=== PATIENT | female | born 1985 | race Caucasian/White ===

== ENCOUNTER → 2018-07-23 | Outpatient (CLI) | payer OTHER ==
[~2018-07-23] MED LIST: CHOL2000 PO; FERR-46 PO; MULT-658 PO
[2018-07-23 13:28] LABS: BASOPHILS # (AUTO) 0.03 x10^3/uL (0-0.1); BASOPHILS % (AUTO) 1 % (0-1); EOSINOPHILS # (AUTO) 0.01 x10^3/uL (0-0.4); EOSINOPHILS % (AUTO) 0 % (1-7); LYMPHOCYTES # (AUTO) 1.77 x10^3/uL (1-3.4); LYMPHOCYTES % (AUTO) 27 % (22-44); MD NO; MEAN CORPUSCULAR HEMOGLOBIN 26.4 pg (27.0-34.8); MEAN CORPUSCULAR HGB CONC 32.6 g/dL (32.4-35.8); MEAN PLATELET VOLUME 7.9 fL (7.4-10.4); MONOCYTES # (AUTO) 0.34 x10^3/uL (0.2-0.8); MONOCYTES % (AUTO) 5 % (2-9); NEUTROPHILS % (AUTO) 67 % (42-75); PLATELET COUNT 394 x10^3/uL (130-400)
== END | disposition home or self-care (01) ==
LOC: STAR 12:25
PROVIDERS: ATTEND Obstetrics & Gynecology
DX: Z01.818 Encounter for other preprocedural examination (principal); N93.8 Other specified abnormal uterine and vaginal bleeding; N92.0 Excessive and frequent menstruation with regular cycle
CPT/HCPCS: 36415; 85025

== ENCOUNTER 2018-10-03 09:02 | Outpatient (CLI) | payer OTHER ==
[2018-10-03] MEDS ORDERED: LISI-170 PO (09:32)
[2018-10-03 10:09] LABS: ALANINE AMINOTRANSFERASE 43 U/L (12-78); ANION GAP 6 mmol/L (5-15); CALCIUM 8.8 mg/dL (8.5-10.1); CHLORIDE 111 mmol/L (98-107)
[2018-10-03 10:13] LABS: ALKALINE PHOSPHATASE 97 U/L (45-117); BILIRUBIN,TOTAL 0.6 mg/dL (0.2-1.0); TOTAL PROTEIN 7.5 g/dL (6.4-8.2)
== END 2018-10-03 23:59 | disposition home or self-care (01) ==
LOC: STAR 09:02
PROVIDERS: ATTEND Obstetrics & Gynecology
DX: Z01.812 Encounter for preprocedural laboratory examination (principal); N93.8 Other specified abnormal uterine and vaginal bleeding; N92.0 Excessive and frequent menstruation with regular cycle; Z90.710 Acquired absence of both cervix and uterus
CPT/HCPCS: 36415; 80053

== ENCOUNTER 2018-10-10 10:58 | Day surgery (SDC) | payer OTHER ==
[~2018-10-10] VITALS: Ht 167.6 cm; Wt 119.4 kg
[~2018-10-10 10:58] MED LIST changes: +LISI-170 PO
[2018-10-10] MEDS ORDERED: PHENAZOPYRIDINE 200 MG TABLET PO STA (11:13)
[2018-10-10] MEDS ORDERED: LACTATED RINGERS 1,000 ML IV SCH ×2 (11:13→22:30)
[2018-10-10 11:30] VITALS: BP 157/89
[2018-10-10] MEDS ORDERED: ACETAMINOPHEN 500 MG TABLET PO ONE (11:30)
[2018-10-10] MEDS ORDERED: GABAPENTIN 300 MG CAPSULE PO ONE (11:30)
[2018-10-10] MEDS ORDERED: MIDAZOLAM 1 MG/ML, 2ML ONE (14:03)
[2018-10-10] MEDS ORDERED: FENTANYL PF 250 MCG/5ML ONE ×3 (14:04→17:57)
[2018-10-10] MEDS ORDERED: PROPOFOL 10 MG/ML, 20ML ONE (14:07)
[2018-10-10] MEDS ORDERED: NEOSTIGMINE 1 MG/ML, 10ML ONE (14:07)
[2018-10-10] MEDS ORDERED: DEXAMETHASONE 4 MG/ML, 1ML ONE (14:07)
[2018-10-10] MEDS ORDERED: CEFAZOLIN 1,000 MG ONE (14:07)
[2018-10-10] MEDS ORDERED: ONDANSETRON 2MG/ML, 2ML ONE (14:07)
[2018-10-10] MEDS ORDERED: GLYCOPYRROLATE 0.2MG/1ML, 5ML ONE (14:07)
[2018-10-10] MEDS ORDERED: ROCURONIUM 10MG/ML,5ML ONE ×2 (14:07→15:45)
[2018-10-10] MEDS ORDERED: EPINEPHRINE 1 MG/ML, 1ML ONE (14:37)
[2018-10-10] MEDS ORDERED: VASOPRESSIN 20 UNIT/ML, 1ML ONE (14:37)
[2018-10-10] MEDS ORDERED: BUPIVACAINE/PF 0.25% ONE (14:37)
[2018-10-10] MEDS ORDERED: PROMETHAZINE 12.5 MG SUPP PR PRN (15:00)
[2018-10-10] MEDS ORDERED: PROMETHAZINE 25 MG/ML, 1ML IM PRN ×2 (15:00)
[2018-10-10] MEDS ORDERED: HYDROmorphone 2 MG/ML, 1ML IVPush PRN (15:00)
[2018-10-10] MEDS ORDERED: LABETALOL 5MG/ML, 20ML IV PRN (15:00)
[2018-10-10] MEDS ORDERED: hydrALAzine 20 MG/ML, 1ML IV PRN (15:00)
[2018-10-10] MEDS ORDERED: MORPHINE SULFATE 4 MG/ML, 1ML IVPush PRN (15:00)
[2018-10-10] MEDS ORDERED: FENTANYL PF 100 MCG/2ML IV PRN (15:00)
[2018-10-10] MEDS ORDERED: MEPERIDINE/PF 25MG/0.5ML IVPush PRN (15:00)
[2018-10-10] MEDS ORDERED: HALOPERIDOL 5 MG/ML IV PRN (15:00)
[2018-10-10] MEDS ORDERED: PROMETHAZINE 25 MG SUPP PR PRN (15:00)
[2018-10-10] MEDS ORDERED: PROMETHAZINE 25 MG/ML, 1ML IV PRN (15:00)
[2018-10-10] MEDS ORDERED: ONDANSETRON 2MG/ML, 2ML IV PRN ×2 (15:00→22:30)
[2018-10-10] MEDS ORDERED: OXYcodone 5 MG/5 ML ORAL.SOL UDC PO PRN (15:00)
[2018-10-10] MEDS ORDERED: FLUORESCEIN SODIUM 500 MG/5 ML ONE (17:17)
[2018-10-10] MEDS ORDERED: ONDANSETRON ODT 8 MG PO PRN (18:00)
[2018-10-10] MEDS ORDERED: BUPIVACAINE/PF-EPI 0.25% 1:200K INFIL ONE (18:40)
[2018-10-10] MEDS ORDERED: FENTANYL PF 100 MCG/2ML ONE (19:40)
[2018-10-10] MEDS ORDERED: OXYcodone 5 MG/5 ML ORAL.SOL UDC ONE (19:41)
[2018-10-10] MEDS ORDERED: morphine SULFATE 10 MG/ML, 1ML IV PRN (22:30)
[2018-10-10] MEDS ORDERED: OXYcodone/APAP 5/325MG TABLET PO PRN (22:30)
[2018-10-10] MEDS ORDERED: ACETAMINOPHEN 500 MG TABLET PO SCH (23:00)
[2018-10-10] MEDS ORDERED: IBUPROFEN 600 MG TABLET PO SCH (23:00)
[2018-10-11] MEDS ORDERED: CHOLECALCIFEROL 1,000 UNIT TABLET PO SCH (09:00)
[2018-10-11] MEDS ORDERED: MULTIVITAMIN 1 TABLET PO SCH (09:00)
[2018-10-11] MEDS ORDERED: FERROUS SULFATE 325 MG TABLET PO SCH (09:00)
[2018-10-11] MEDS ORDERED: LISINOPRIL 20 MG TABLET PO SCH (09:00)
[2018-10-14] MEDS ORDERED: IBUPROFEN 600 MG TABLET PO PRN (21:00)
[2018-10-14] MEDS ORDERED: ACETAMINOPHEN 500 MG TABLET PO PRN (23:00)
== END 2018-10-10 23:54 | disposition home or self-care (01) ==
LOC: OUT 10:58 → 4NOR 20:45 → OUT 23:54
PROVIDERS: ATTEND Obstetrics & Gynecology
DX: D25.9 Leiomyoma of uterus, unspecified (principal); N84.0 Polyp of corpus uteri; N93.9 Abnormal uterine and vaginal bleeding, unspecified; N73.6 Female pelvic peritoneal adhesions (postinfective); I10 Essential (primary) hypertension; D64.9 Anemia, unspecified; N92.0 Excessive and frequent menstruation with regular cycle; G89.18 Other acute postprocedural pain; Z72.89 Other problems related to lifestyle; Z98.890 Other specified postprocedural states; Z90.49 Acquired absence of other specified parts of digestive tract
CPT/HCPCS: 36415; 58552; 84703; 88305; 88307; J0171; J0690; J1100; J2250; J2405; J2704; J2710; J3010; J3490; J7120; G0378